=== PATIENT | female | born 2000 | race Caucasian/White ===

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

== ENCOUNTER 2022-02-25 19:10 | Inpatient (IN) | payer MEDICAID, OTHER ==
[~2022-02-25] VITALS: Ht 160 cm; Wt 76.0 kg
[2022-02-25 20:05] LABS: COVID AG,FIA SOURCE NASOPHARYNGEAL
[2022-02-25 20:07] LABS: BASOPHILS % (AUTO) 0.3 % (0.0-2.0); HEMATOCRIT 39.1 % (36-46); HEMOGLOBIN 13.1 g/dL (12.0-16.0); LYMPHOCYTES # (AUTO) 1.3 K/uL (1.0-4.8); MEAN CORPUSCULAR HEMOGLOBIN 31.1 pg (26.0-34.0); MEAN CORPUSCULAR HGB CONC 33.5 G/dL (31.0-37.0); MEAN CORPUSCULAR VOLUME 93 fL (80-100); MONOCYTES # (AUTO) 0.3 K/uL (0.1-1.0); NEUTROPHILS # (AUTO) 5.8 K/uL (1.8-7.7); NEUTROPHILS % (AUTO) 76.7 % (40.0-70.0); PLATELET COUNT (AUTO) 341 K/uL (150-450); RED BLOOD CELL COUNT(AUTO) 4.21 MIL/uL (4.00-5.20); RED CELL DISTRIBUTION WIDTH 13.5 % (11.5-14.5)
[2022-02-25 20:19] LABS: ANION GAP 11 mmol/L (8-16); CALCIUM, TOTAL 9.8 mg/dL (8.8-10.5); CARBON DIOXIDE 23 mmol/L (22-29); CHLORIDE 108 mmol/L (98-107); CREATININE 0.58 mg/dL (0.60-1.30); GLOMERULAR FILTR. RATE CALC > 60 mL/min (>60); GLUCOSE,RANDOM 95 mg/dL (70-110); POTASSIUM 3.6 mmol/L (3.5-5.1); SODIUM SERUM 142 mmol/L (136-145); UREA NITROGEN, BLOOD 7 mg/dL (7-18)
[2022-02-25 20:31] LABS: ALANINE AMINOTRANSFERASE 33 U/L (12-78); ALBUMIN 3.7 g/dL (3.4-5.0); ALKALINE PHOSPHATASE 74 U/L (46-116); ASPARTATE AMINOTRANSFERASE 14 U/L (15-37); BILIRUBIN,TOTAL 0.2 mg/dL (0.1-1.0); HCG,QUANTITATIVE < 1 mIU/mL (0-6); TOTAL PROTEIN, SERUM 7.2 g/dL (6.4-8.2)
[2022-02-25 22:00] LABS: AMPHET/METH SCREEN,URINE NEGATIVE (NEGATIVE); BARBITURATE SCREEN, URINE NEGATIVE (NEGATIVE); BENZODIAZEPINES SCREEN,URINE NEGATIVE (NEGATIVE); CANNABINOID SCREEN,URINE POSITIVE (NEGATIVE); COCAINE SCREEN,URINE NEGATIVE (NEGATIVE); METHADONE SCREEN, URINE NEGATIVE (NEGATIVE); OPIATE SCREEN,URINE NEGATIVE (NEGATIVE)
[2022-02-25] MEDS ORDERED: PERTUSS(ACELL),DIPH,TET VAC/PF 0.5 ML SYRINGE IM. ONE (22:00)
[2022-02-25] MEDS ORDERED: SODIUM CHLORIDE 0.9% 250 ML IRRIG SOLUTION BOTTLE IRRIG ONE (22:00)
[2022-02-25 22:01] LABS: PHENCYCLIDINE SCREEN,URINE NEGATIVE (NEGATIVE)
[2022-02-25] MEDS ORDERED: ZOLPIDEM TARTRATE 10 MG TABLET PO PRN (23:00)
[2022-02-25] MEDS ORDERED: OLANZapine 5 MG RAPDIS TABLET PO PRN (23:00)
[2022-02-25] MEDS ORDERED: LORazepam 2 MG TABLET PO PRN (23:00)
[2022-02-26] VITALS (10 sets, daily range): BP systolic 112–126; BP diastolic 60–84
[2022-02-26] MEDS ORDERED: BACITRACIN 28 GM OINTMENT TP ONE (09:00)
[2022-02-26] MEDS ORDERED: GuaiFENesin/D-METHORPHAN [SUGAR-FREE] 200-20MG/10 ML SYRUP UDCUP PO PRN (10:45)
[2022-02-26] MEDS ORDERED: LOPERAMIDE HCL 2 MG CAPSULE PO PRN ×2 (10:45)
[2022-02-26] MEDS ORDERED: TUBERCULIN, PURIFIED PROTEIN DERIVATIVE 5 TU/0.1 ML SYRINGE ID ONE (10:45)
[2022-02-26] MEDS ORDERED: MAGNESIUM HYDROXIDE SUSPENSION 30 ML UDCUP PO PRN (10:45)
[2022-02-26] MEDS ORDERED: CYANOCOBALAMIN 1,000 MCG/ML VIAL IM ONE (10:45)
[2022-02-26] MEDS ORDERED: MAG HYDROX/AL HYDROX/SIMETH ES 30 ML SUSPENSION UDCUP PO PRN (10:45)
[2022-02-26] MEDS ORDERED: LORazepam 2 MG TABLET PO PRN (10:45)
[2022-02-26] MEDS ORDERED: ACETAMINOPHEN 325 MG TABLET PO PRN (10:45)
[2022-02-26] MEDS ORDERED: PROMETHAZINE HCL 25 MG TABLET PO PRN (10:45)
[2022-02-26] MEDS ORDERED: HydrOXYzine PAMOATE 50 MG CAPSULE PO PRN (10:45)
[2022-02-26] MEDS: THIAMINE 100 MG TABLET PO SCH (16:44)
[2022-02-26] MEDS: PRAZOSIN HCL 1 MG CAPSULE PO SCH (20:13)
[2022-02-26] MEDS: MELATONIN 5 MG TABLET PO SCH (20:14)
[2022-02-27] MEDS ORDERED: LORazepam 2 MG TABLET PO PRN (07:00)
[2022-02-27 08:00] VITALS: BP 132/74
[2022-02-27 08:31] LABS: HEMOGLOBIN A1C 5.3 % (3.8-5.6)
[2022-02-27 08:41] LABS: CHOL/HDL RATIO 2.6 (3.9-5.7); FREE T4 (FREE THYROXINE) 1.04 ng/dL (0.76-1.46); THYROID STIMULATING HORMONE 1.11 uIU/mL (0.36-3.74)
[2022-02-27] MEDS: LORazepam 2 MG TABLET PO SCH ×4 (08:51→21:13)
[2022-02-27] MEDS: MULTIVITAMINS WITH MINERALS, THERAPEUTIC TABLET PO SCH (08:51)
[2022-02-27] MEDS: NALTREXONE HCL 50 MG TABLET PO SCH (08:51)
[2022-02-27] MEDS: FLUoxetine HCL 20 MG CAPSULE PO SCH (08:51)
[2022-02-27] MEDS: OMEGA-3/DHA/EPA/FISH OIL 1,000 MG CAPSULE PO SCH (08:51)
[2022-02-27] MEDS: THIAMINE 100 MG TABLET PO SCH ×2 (08:51→17:23)
[2022-02-27] MEDS: FOLIC ACID 1 MG TABLET PO SCH (08:51)
[2022-02-27 09:51] VITALS: BP 132/74
[2022-02-27 13:51] VITALS: BP 104/61
[2022-02-27 17:51] VITALS: BP 130/71
[2022-02-27 17:52] VITALS: BP 130/71
[2022-02-27] MEDS: MELATONIN 5 MG TABLET PO SCH (21:13)
[2022-02-27] MEDS: PRAZOSIN HCL 1 MG CAPSULE PO SCH (21:13)
[2022-02-27 22:55] VITALS: BP 135/75
[2022-02-28 08:41] VITALS: BP 144/78
[2022-02-28] MEDS: THIAMINE 100 MG TABLET PO SCH (08:55)
[2022-02-28] MEDS: FOLIC ACID 1 MG TABLET PO SCH (08:55)
[2022-02-28] MEDS: FLUoxetine HCL 20 MG CAPSULE PO SCH (08:55)
[2022-02-28] MEDS: NALTREXONE HCL 50 MG TABLET PO SCH (08:55)
[2022-02-28] MEDS: LORazepam 2 MG TABLET PO SCH ×2 (08:55→12:24)
[2022-02-28] MEDS: MULTIVITAMINS WITH MINERALS, THERAPEUTIC TABLET PO SCH (08:55)
[2022-02-28] MEDS: OMEGA-3/DHA/EPA/FISH OIL 1,000 MG CAPSULE PO SCH (08:55)
[2022-02-28 09:51] VITALS: BP 135/73
[2022-02-28] MEDS ORDERED: OMEG-135 PO (10:34)
[2022-02-28] MEDS ORDERED: MELA5TAB40 PO (10:34)
[2022-02-28] MEDS ORDERED: PRAZ1 PO (10:34)
[2022-02-28] MEDS ORDERED: NALT50TA PO (10:34)
[2022-02-28] MEDS ORDERED: PROZ20 PO (10:34)
[2022-03-01] MEDS ORDERED: LORazepam 1 MG TABLET PO PRN (07:00)
[2022-03-01] MEDS ORDERED: LORazepam 1 MG TABLET PO SCH (09:00)
[2022-03-02] MEDS ORDERED: LORazepam 1 MG TABLET PO PRN (07:00)
== END 2022-02-28 13:15 | disposition home or self-care (01) | DRG 751 ==
LOC: EMS 19:20 → 3EI 02-26 00:55
PROVIDERS: ADMIT Psychiatry & Neurology Psychiatry; ATTEND Psychiatry & Neurology Psychiatry
DX: F32.2 Major depressive disorder, single episode, severe without psychotic features (principal); R45.851 Suicidal ideations; F10.10 Alcohol abuse, uncomplicated; Z20.822 Contact with and (suspected) exposure to COVID-19; F43.10 Post-traumatic stress disorder, unspecified; Y90.7 Blood alcohol level of 200-239 mg/100 ml; Z55.9 Problems related to education and literacy, unspecified; Z59.9 Problem related to housing and economic circumstances, unspecified; Z63.9 Problem related to primary support group, unspecified; Z65.3 Problems related to other legal circumstances
CPT/HCPCS: 12002; 80053; 80061; 83036; 84439; 84443; 84702; 85025; 86592; 90715; 99285; G0480; J3420; Q9967